=== PATIENT | female | born 2000 | race Hispanic/Latino ===

== ENCOUNTER 2021-06-28 02:33 | Emergency (ER) | payer OTHER ==
[2021-06-28 03:16] LABS: #Basophils 0.1 10x3/uL (0.0-0.2); #Monocytes 0.5 10x3/uL (0.0-1.1); #Neutrophils 5.5 10x3/uL (1.5-8.4); %Basophils 0.6 % (0.0-2.0); %Eosinophils 0.5 % (0.0-6.0); %Lymphocytes 27.5 % (18.0-47.0); %Monocytes 6.3 % (0.0-10.0); Hemoglobin 12.4 g/dL (12.0-15.5); Mean Corpuscular HGB CONC 34.4 g/dL (32.0-36.0); Mean Corpuscular Hemoglobin 30.5 pg (27.0-33.0); Mean Corpuscular Volume 88.7 fl (81.6-98.3); Mean Platelet Volume 9.4 fl (7.4-10.4); Platelet Count 386 10x3/uL (150-450); RBC Distribution Width 12.7 % (11.5-14.5); Red Blood Cell (RBC) Count 4.06 10x6/uL (3.90-5.03); White Blood Cell (WBC) Count 8.5 10x3/uL (3.5-10.5)
[2021-06-28 03:27] LABS: Anion Gap 12 mmol/L (10-20); BUN (Urea Nitrogen) 8 mg/dL (7.0-18.7); Calc. Creatinine Clearance 0 mL/min (70-130); Calcium 9.2 mg/dL (7.8-10.44); Carbon Dioxide 25 mmol/L (22-29); Chloride 103 mmol/L (98-107); Glucose 93 mg/dL (70-105); Potassium 3.7 mmol/L (3.5-5.1); Sodium 136 mmol/L (136-145)
== END 2021-06-28 03:41 | disposition home or self-care (01) ==
LOC: CSHERS 02:33
DX: O20.0 Threatened abortion (principal); O99.331 Smoking (tobacco) complicating pregnancy, first trimester; F17.210 Nicotine dependence, cigarettes, uncomplicated; Z3A.01 Less than 8 weeks gestation of pregnancy
CPT/HCPCS: 76856; 80048; 85025; 86900; 86901

== ENCOUNTER 2022-01-30 12:16 | Emergency (ER) | payer OTHER ==
[2022-01-30 14:15] LABS: #Eosinphils 0.1 10x3/uL (0.0-0.5); #Monocytes 0.5 10x3/uL (0.0-1.1); #Neutrophils 5.5 10x3/uL (1.5-8.4); %Basophils 0.3 % (0.0-2.0); %Eosinophils 0.7 % (0.0-6.0); %Lymphocytes 11.1 % (18.0-47.0); %Monocytes 7.4 % (0.0-10.0); %Neutrophils 80.4 % (40.0-75.0); Hemoglobin 13.1 g/dL (12.0-15.5); Mean Corpuscular HGB CONC 35.1 g/dL (32.0-36.0); Mean Corpuscular Volume 88.2 fl (81.6-98.3); Mean Platelet Volume 10.2 fl (7.4-10.4); Platelet Count 329 10x3/uL (150-450); RBC Distribution Width 12.5 % (11.5-14.5); Red Blood Cell (RBC) Count 4.23 10x6/uL (3.90-5.03); White Blood Cell (WBC) Count 6.9 10x3/uL (3.5-10.5)
[2022-01-30 14:31] LABS: ALT (SGPT) Less than 6 U/L (8-55); AST (SGOT) 13 U/L (5-34); Alkaline Phosphatase 48 U/L (40-110); Anion Gap 12 mmol/L (10-20); BUN (Urea Nitrogen) 6 mg/dL (7.0-18.7); Bilirubin, Total 0.4 mg/dL (0.2-1.2); Calc. Creatinine Clearance 0 mL/min (70-130); Calcium 9.1 mg/dL (7.8-10.44); Carbon Dioxide 22 mmol/L (22-29); Chloride 104 mmol/L (98-107); Estimated GFR 130; Globulin 3.2 g/dL (2.4-3.5); Glucose 91 mg/dL (70-105); Protein, Total 7.2 g/dL (6.0-8.3); Sodium 134 mmol/L (136-145)
[2022-01-30] MEDS ORDERED: Ondansetron ODT 4 MG TAB ONE (15:28)
== END 2022-01-30 16:11 | disposition home or self-care (01) ==
LOC: CSHERS 12:16
DX: J10.1 Influenza due to other identified influenza virus with other respiratory manifestations (principal); F17.210 Nicotine dependence, cigarettes, uncomplicated; Z20.822 Contact with and (suspected) exposure to COVID-19
CPT/HCPCS: 80053; 85025; 87804; 99283; Q0162; U0003; U0005

== ENCOUNTER 2022-03-17 08:59 | Outpatient (CLI) | payer OTHER | END 2022-03-17 09:00 | disposition home or self-care (01) | LOC: CSHULT 08:59 | PROVIDERS: ATTEND Advanced Practice Midwife | DX: Z34.92 Encounter for supervision of normal pregnancy, unspecified, second trimester (principal); Z3A.19 19 weeks gestation of pregnancy | CPT/HCPCS: 76805 ==

== ENCOUNTER 2022-06-24 17:29 | Day surgery (SDC) | payer OTHER ==
[2022-06-24 17:56] VITALS: BMI 29.4
[2022-06-24] MEDS ORDERED: hydrALAZINE 20 MG/ML VIAL SLOW IVP PRN (18:20)
[2022-06-24 18:30] LABS: Bilirubin Neg (Negative); Blood, Urine Negative (Negative); Clarity Slightly Cloudy (Clear); Glucose, Urine (Dipstick) Normal (Negative); Ketone, Urine Negative (Negative); Leukocyte 100 (Negative); Nitrite Negative (Negative); Protein, Urine (Dipstick) 15 mg/dl (Neg-Trace); Urobilinogen Normal mg/dL (Less than 2); pH, Urine 6.5 (5.0-9.0)
[2022-06-24 18:54] LABS: Bacteria/HPF None Seen HPF (None Seen); RBC/HPF None Seen HPF (0-3)
[2022-06-24] MEDS ORDERED: metroNIDAZOLE 500 MG TAB PO SCH (21:00)
== END 2022-06-24 19:59 | disposition home or self-care (01) ==
LOC: CSHLD/OP 17:29
PROVIDERS: ATTEND Family Medicine
DX: O23.593 Infection of other part of genital tract in pregnancy, third trimester (principal); O98.813 Other maternal infectious and parasitic diseases complicating pregnancy, third trimester; B37.31 Acute candidiasis of vulva and vagina; B96.89 Other specified bacterial agents as the cause of diseases classified elsewhere; N89.8 Other specified noninflammatory disorders of vagina; Z3A.34 34 weeks gestation of pregnancy; Z79.899 Other long term (current) drug therapy
CPT/HCPCS: 81003; 81015; 87480; 87510; 87660; 99285

== ENCOUNTER 2022-07-06 15:24 | Day surgery (SDC) | payer OTHER ==
[2022-07-06 15:54] VITALS: BMI 29.9
[2022-07-06 16:57] LABS: Bilirubin Neg (Negative); Blood, Urine Negative (Negative); Clarity Clear (Clear); Glucose, Urine (Dipstick) Normal (Negative); Ketone, Urine Negative (Negative); Leukocyte 25 (Negative); Nitrite Negative (Negative); Protein, Urine (Dipstick) Negative (Neg-Trace); Urobilinogen Normal mg/dL (Less than 2)
[2022-07-06 17:09] LABS: Bacteria/HPF 1+ HPF (None Seen); RBC/HPF 0-3 HPF (0-3)
[2022-07-06 17:12] LABS: Yeast-Hyphae Rare HPF (None Seen)
[2022-07-06] MEDS ORDERED: Fosfomycin 3 GM/Packet PO SCH (17:30)
[2022-07-06] MEDS ORDERED: hydrALAZINE 20 MG/ML VIAL SLOW IVP PRN (17:41)
== END 2022-07-06 17:50 | disposition home health service (06) ==
LOC: CSHLD/OP 15:24
PROVIDERS: ATTEND Family Medicine
DX: O98.813 Other maternal infectious and parasitic diseases complicating pregnancy, third trimester (principal); B37.31 Acute candidiasis of vulva and vagina; O23.43 Unspecified infection of urinary tract in pregnancy, third trimester; N39.0 Urinary tract infection, site not specified; Z3A.36 36 weeks gestation of pregnancy; Z87.891 Personal history of nicotine dependence
CPT/HCPCS: 51701; 81001; 99282

== ENCOUNTER 2022-07-24 09:41 | Inpatient (IN) | payer OTHER ==
[2022-07-24 10:38] LABS: Fetal Membranes Rupture RUPTURE DETECTED (No Rupture)
[2022-07-24] MEDS ORDERED: Acetaminophen 500 MG TAB PO PRN (10:40)
[2022-07-24] MEDS ORDERED: hydrALAZINE 20 MG/ML VIAL SLOW IVP PRN ×2 (10:40→21:10)
[2022-07-24] MEDS ORDERED: Lidocaine 1% (PF) 30 ML VIAL SC PRN (10:40)
[2022-07-24] MEDS ORDERED: Butorphanol Tartrate 1 MG/ML VIAL SLOW IVP PRN (10:40)
[2022-07-24] MEDS ORDERED: Methylergonovine 0.2 MG/ML VIAL IM PRN (10:40)
[2022-07-24] MEDS ORDERED: Ondansetron PF 4 MG/2 ML Vial IVP PRN ×3 (10:40→21:10)
[2022-07-24] MEDS ORDERED: Ibuprofen 800 MG TAB PO PRN (10:40)
[2022-07-24] MEDS ORDERED: HYDROcodone/Acetaminophen 5/325 mg Tablet PO PRN ×2 (10:40→21:10)
[2022-07-24] MEDS ORDERED: Carboprost 250 MCG/ML AMP IM PRN (10:40)
[2022-07-24] MEDS ORDERED: Promethazine HCl 25 MG/ML VIAL IM PRN ×2 (10:40→14:17)
[2022-07-24] MEDS ORDERED: Misoprostol 200 MCG TAB PR PRN (10:40)
[2022-07-24] MEDS ORDERED: Diphenoxylate HCl/Atropine Tablet PO PRN (10:40)
[2022-07-24] MEDS ORDERED: Lactated Ringer's 1,000 ML IV SCH (10:45)
[2022-07-24] MEDS ORDERED: NS w/ Oxytocin 30 units 500 ML IV SCH ×3 (10:45)
[2022-07-24] MEDS ORDERED: Misoprostol 100 MCG TAB VAG SCH (10:45)
[2022-07-24] MEDS ORDERED: Bupivacaine/Epinephrine 0.25% 30 ML VIAL ONE (12:11)
[2022-07-24 12:20] LABS: Hemoglobin 10.6 g/dL (12.0-15.5); Mean Corpuscular HGB CONC 31.6 g/dL (32.0-36.0); Mean Corpuscular Hemoglobin 27.2 pg (27.0-33.0); Mean Corpuscular Volume 85.9 fl (81.6-98.3); Mean Platelet Volume 11.5 fl (7.4-10.4); Platelet Count 306 10x3/uL (150-450); RBC Distribution Width 13.2 % (11.5-14.5); White Blood Cell (WBC) Count 8.8 10x3/uL (3.5-10.5)
[2022-07-24 13:55] LABS: Syphilis Antibody Nonreactive (Nonreactive); Syphilis Antibody Index 0.02 S/CO (<1.00 Non-Reactive)
[2022-07-24 13:57] LABS: HBSAg Index 0.13 S/CO (0-0.99); Hep B Surf Ag - L&D Non-Reactive S/CO (NonReactive)
[2022-07-24] MEDS ORDERED: Fentanyl 2 mcg/Bup 0.1% Cadd 100 ML ONE (13:59)
[2022-07-24] MEDS ORDERED: ePHEDrine Sulfate 50 MG/10 ML VIAL SLOW IVP PRN (14:17)
[2022-07-24] MEDS ORDERED: Lactated Ringer's 500 ML IV PRN (14:17)
[2022-07-24] MEDS ORDERED: Acetaminophen 325 MG TAB PO PRN (14:17)
[2022-07-24] MEDS ORDERED: diphenhydrAMINE 50 MG/ML VIAL IVP PRN (14:17)
[2022-07-24] MEDS ORDERED: Naloxone HCl 0.4 mg/ml Vial IVP PRN ×2 (14:17)
[2022-07-24] MEDS ORDERED: Moisturizing Cream (Eucerin) 113 GM JAR TOP PRN (14:17)
[2022-07-24] MEDS ORDERED: Fentanyl 2 mcg/Bupivacaine 0.1% Cassette 100 ML EPIDURAL SCH (14:30)
[2022-07-24] MEDS ORDERED: Communication Order-Pharmacy FS SCH (14:30)
[2022-07-24 21:10] VITALS: BMI 31.6
[2022-07-24] MEDS ORDERED: diphenhydrAMINE 25 MG CAP PO PRN (21:10)
[2022-07-24] MEDS ORDERED: Bisacodyl 10 MG SUPP PR PRN (21:10)
[2022-07-24] MEDS ORDERED: Milk Of Magnesia 30 ML UDCUP PO PRN (21:10)
[2022-07-24] MEDS ORDERED: Boostrix 0.5 ML (Tdap) VIAL (>/=7 yrs of age) IM ONE (21:10)
[2022-07-24] MEDS ORDERED: Lanolin Ointment 7 GM TUBE TOP PRN (21:10)
[2022-07-24] MEDS: Docusate 100 MG CAP PO SCH (22:13)
[2022-07-24] MEDS: Ibuprofen 800 MG TAB PO SCH (22:13)
[2022-07-25] MEDS: Ibuprofen 800 MG TAB PO SCH ×2 (04:10→14:20)
[2022-07-25] MEDS ORDERED: Ferrous Sulfate 325 MG TAB PO SCH (08:00)
[2022-07-25] MEDS ORDERED: Prenatal Vitamin 1 TAB PO SCH (09:00)
[2022-07-25] MEDS: Docusate 100 MG CAP PO SCH (09:18)
[2022-07-25 11:27] VITALS: TEMP 97.8
[2022-07-25 17:19] VITALS: BP 111/59
== END 2022-07-25 20:05 | disposition home or self-care (01) | DRG 807 ==
LOC: CSHLD/OP 09:41 → CSHLD 15:05 → CSHPP 21:00
PROVIDERS: ADMIT Family Medicine; ATTEND Family Medicine
PROC: 10E0XZZ Delivery of Products of Conception, External Approach (ICD-10-PCS; principal; 2022-07-24)
DX: O42.02 Full-term premature rupture of membranes, onset of labor within 24 hours of rupture (principal); Z37.0 Single live birth; Z3A.38 38 weeks gestation of pregnancy
CPT/HCPCS: 36415; 51702; 84112; 85027; 86780; 86850; 86900; 86901; 87340; 99285; J2405; J2590

== ENCOUNTER 2022-08-25 17:02 | Emergency (ER) | payer OTHER ==
[2022-08-25] MEDS ORDERED: Ondansetron ODT 4 MG TAB ONE (17:33)
[2022-08-25] MEDS ORDERED: Dicyclomine 20 MG/2 ML VIAL ONE (17:33)
[2022-08-25 18:07] LABS: Bilirubin Neg (Negative); Blood, Urine 25 (Negative); Clarity Clear (Clear); Glucose, Urine (Dipstick) Normal (Negative); Ketone, Urine Negative (Negative); Leukocyte 25 (Negative); Nitrite Negative (Negative); Protein, Urine (Dipstick) 15 mg/dl (Neg-Trace); Specific Gravity, Urine 1.015 (1.005-1.030); Urobilinogen Normal mg/dL (Less than 2); pH, Urine 6.5 (5.0-9.0)
[2022-08-25 18:23] LABS: Bacteria/HPF 1+ HPF (None Seen); Mucous/LPF 1+ LPF (<2+); WBC/HPF 0-3 HPF (0-3)
== END 2022-08-25 19:00 | disposition home or self-care (01) ==
LOC: CSHERS 17:02
DX: N39.0 Urinary tract infection, site not specified (principal); R19.7 Diarrhea, unspecified; R11.10 Vomiting, unspecified
CPT/HCPCS: 81003; 81015; 96372; 99284; Q0162

== ENCOUNTER 2022-09-22 05:51 | Emergency (ER) | payer OTHER | END 2022-09-22 06:27 | disposition left against medical advice (07) | LOC: CSHERS 05:51 | DX: Z53.21 Procedure and treatment not carried out due to patient leaving prior to being seen by health care provider (principal) ==

== ENCOUNTER 2024-11-04 16:27 | Emergency (ER) | payer BC ==
[2024-11-04] MEDS ORDERED: HYDROcodone/Acetaminophen 5/325 mg Tablet ONE (16:59)
[2024-11-04 17:34] LABS: #Basophils 0.03 10x3/uL (0.0-0.2); #Eosinophils 0.06 10x3/uL (0.0-0.5); #Monocytes 0.70 10x3/uL (0.0-1.1); #Neutrophils 7.67 10x3/uL (1.5-8.4); %Basophils 0.3 % (0.0-2.0); %Eosinophils 0.6 % (0.0-6.0); %Lymphocytes 18.7 % (18.0-47.0); %Monocytes 6.7 % (0.0-10.0); %Neutrophils 73.5 % (40.0-75.0); Hematocrit 36.4 % (34.9-44.5); Hemoglobin 12.5 g/dL (12.0-15.5); Mean Corpuscular Hemoglobin 29.9 pg (27.0-33.0); Mean Corpuscular Volume 87.1 fL (81.6-98.3); Platelet Count 383 10x3/uL (150-450); Red Blood Cell (RBC) Count 4.18 10x6/uL (3.90-5.03); White Blood Cell (WBC) Count 10.43 10x3/uL (3.5-10.5)
[2024-11-04 17:50] LABS: ALT (SGPT) 8 U/L (Less than 34); AST (SGOT) 15 U/L (11-34); Albumin 4.2 g/dL (3.1-4.5); Alkaline Phosphatase 51 U/L (40-110); Anion Gap 11 mmol/L (10-20); BUN (Urea Nitrogen) 8 mg/dL (7.0-18.7); Bilirubin, Total 0.5 mg/dL (0.3-1.2); Calc. Creatinine Clearance 0 mL/min (70-130); Calcium 9.1 mg/dL (7.8-10.44); Carbon Dioxide 22 mmol/L (22-29); Chloride 107 mmol/L (98-107); Globulin 3.7 g/dL (2.4-3.5); Glucose 105 mg/dL (70-105); Lipase 22 U/L (8-78); Potassium 3.4 mmol/L (3.5-5.1); Sodium 137 mmol/L (136-145)
== END 2024-11-04 19:11 | disposition home or self-care (01) ==
LOC: CSHERS 16:27
DX: O03.9 Complete or unspecified spontaneous abortion without complication (principal)
CPT/HCPCS: 36415; 80053; 83690; 84702; 85025; 99284

== ENCOUNTER 2025-02-19 22:28 | Emergency (ER) | payer BC ==
[2025-02-19] MEDS ORDERED: Dexamethasone 10 MG/ML VIAL ONE (23:35)
== END 2025-02-19 23:45 | disposition home or self-care (01) ==
LOC: CSHERS 22:28
DX: J02.9 Acute pharyngitis, unspecified (principal)
CPT/HCPCS: 87081; 87428; 87430; 99283; J1100